=== PATIENT | female | born 1945 | race Caucasian/White ===

== ENCOUNTER 2017-07-28 02:47 | Emergency (ER) | payer MEDICARE ==
[~2017-07-28] VITALS: Ht 170.2 cm; Wt 53.0 kg
[2017-07-28 03:13] LABS: URINE BILIRUBIN - DIPSTICK NEGATIVE (NEGATIVE); URINE BLOOD DIPSTICK MODERATE (NEGATIVE); URINE CLARITY CLEAR; URINE COLOR YELLOW; URINE GLUCOSE - DIPSTICK NEGATIVE (NEGATIVE); URINE KETONE NEGATIVE (NEGATIVE); URINE LEUK ESTERASE NEGATIVE (NEGATIVE); URINE NITRITE - DIPSTICK NEGATIVE (Negative); URINE PH 5.5 (4.5-8.0); URINE PROTEIN - DIPSTICK NEGATIVE (NEG-TRACE); URINE SPECIFIC GRAVITY 1.025
[2017-07-28 03:40] LABS: URINE SQUAMOUS EPITHELIAL CELL FEW EPI/hpf (0-FEW); URINE WBC 0-2 WBC/hpf (0-5)
[2017-07-28] MEDS ORDERED: PYRIDIUM200 MG PO (03:51)
[2017-07-28] MEDS ORDERED: CIPROFLOXACN500 MG PO (03:51)
[2017-07-28 04:11] VITALS: BP 165/103
== END 2017-07-28 04:05 | disposition home or self-care (01) ==
LOC: ED 02:47
PROVIDERS: Emergency Medicine
DX: N34.2 Other urethritis (principal); R03.0 Elevated blood-pressure reading, without diagnosis of hypertension; M19.90 Unspecified osteoarthritis, unspecified site; M41.9 Scoliosis, unspecified